=== PATIENT | male | born 1965 | race Hispanic/Latino ===

== ENCOUNTER 2017-11-12 07:00 | Day surgery (SDC) | payer OTHER ==
[2017-11-12] MEDS ORDERED: NA CHLORIDE 0.9% 1,000 ML ONE (07:25)
[2017-11-12] MEDS ORDERED: LIDOCAINE 1% MPF 5 ML VIAL ONE (08:14)
[2017-11-12] MEDS ORDERED: PROPOFOL 200 MG/20 ML VIAL IV ONE ×3 (08:14→08:56)
[2017-11-12 08:51] VITALS: TEMP 97.8
[2017-11-12 08:53] VITALS: BP 128/98; O2SAT 94
--- NOTE | 2017-11-16 08:37 | ENDO RPT ---
[address], [address] COLONOSCOPY PROCEDURE REPORT EXAM DATE: 11/12/2017 PATIENT NAME: Jefferson Varela MR #: [id number] BIRTHDATE: 1965 ATTENDING: Kevin Fournier DR STATUS: outpatient ASSOCIATE PROFESSOR OF AUTOMATION: Lanre Fountain and Crystal Stanley RN INDICATIONS: The patient is a 52 yr old Male here for a colonoscopy due to colon cancer screening PROCEDURE PERFORMED: Colonoscopy with biopsy - cold polypectomy MEDICATIONS: Per Anesthesia. ESTIMATED BLOOD LOSS: None CONSENT: The patient understands the risks and benefits of the procedure and understands that these risks include, but are not limited to: sedation, allergic reaction, infection, perforation and/or bleeding. Alternative means of evaluation and treatment include, among others: physical exam, x-rays, and/or surgical intervention. The patient elects to proceed with this endoscopic procedure. DESCRIPTION OF PROCEDURE: During intra-op preparation period all mechanical medical equipment was checked for proper function. Hand hygiene and appropriate measures for infection prevention was taken. Procedure, possible complications, alternatives including, but not limited to possibility of bleeding, perforation, tear, infection, sepsis, need for surgery, need for blood transfusion, were explained to the patient. After the risks, benefits and alternatives of the procedure were thoroughly explained, Informed consent was verified, confirmed and timeout was successfully executed by the treatment team. The patient was placed in the left lateral position. A digital rectal exam was performed and revealed internal hemorrhoids. After appropriate level of anesthesia, the scope was passed. The [id number] ([id number]) endoscope was introduced through the anus and advanced to the cecum, which was identified by the ileocecal valve. The quality of the prep was fair. The instrument was then slowly withdrawn as the colon was fully examined. Scope withdrawal time was 10 minutes. COLON FINDINGS: Two small smooth semi-pedunculated polyps with friable surfaces were found in the right colon. Multiple biopsies were performed using cold forceps. Polyps were completely removed and all tissue was removed. Sample was obtained and sent to histology. Moderate sized internal hemorrhoids were found. Retroflexed views revealed medium hemorrhoids. The scope was then completely withdrawn from the patient and the procedure terminated. ADVERSE EVENTS: There were no complications. IMPRESSIONS: 1. Two small semi-pedunculated polyps were found in the right colon; multiple biopsies were performed using cold forceps 2. Moderate sized internal hemorrhoids RECOMMENDATIONS: 1. avoid NSAIDS for 2 weeks 2. await biopsy results 3. fiber rich diet 4. follow-up: office 2 week(s) RECALL: Return in 3 year(s) for Colonoscopy, pending biopsy results. Pending Biopsy Kevin Fournier DR eSigned: Kevin Fournier DR 11/12/2017 8:31 AM cc: CPT CODES: ICD9 CODES: PATIENT NAME: Jefferson Varela MR#: [id number]
== END 2017-11-12 08:59 | disposition home or self-care (01) ==
LOC: OR 07:00
PROVIDERS: ATTEND Surgery
PROC: 0DBF8ZX Excision of Right Large Intestine, Via Natural or Artificial Opening Endoscopic, Diagnostic (ICD-10-PCS; principal; 2017-11-12 08:00)
DX: Z12.11 Encounter for screening for malignant neoplasm of colon (principal); D12.2 Benign neoplasm of ascending colon; K64.8 Other hemorrhoids; K21.9 Gastro-esophageal reflux disease without esophagitis; I10 Essential (primary) hypertension; E78.2 Mixed hyperlipidemia; F17.210 Nicotine dependence, cigarettes, uncomplicated; Z82.49 Family history of ischemic heart disease and other diseases of the circulatory system; Z82.61 Family history of arthritis
CPT/HCPCS: 88305; J7030

== ENCOUNTER 2017-11-15 00:43 | Emergency (ER) | payer OTHER ==
[2017-11-15] MEDS ORDERED: ACETAMINOPHEN 325 MG TABLET ONE (02:38)
--- NOTE | 2017-11-15 02:39 | ER ---
Nurse's Notes [facility] Name: Jefferson Varela Age: 52 yrs Sex: Male : 1965 Arrival Date: 11/15/2017 Time: 00:48 Bed 24 Private MD: Diagnosis: Cough Presentation: 11/15 01:00 Presenting complaint: Patient states: cough x 2 days. Denies fever. Transition of care: aa1 patient was not received from another setting of care. Onset of symptoms was November 13, 2017. Care prior to arrival: None. 01:00 Method Of Arrival: Ambulatory aa1 01:00 Acuity: JORGE 4 aa1 Triage Assessment: 01:02 General: Appears in no apparent distress. comfortable, Behavior is calm, cooperative, aa1 appropriate for age, Smells of alcohol. Historical: - Allergies: 01:02 No Known Allergies; aa1 - PMHx: 01:02 Hypertension; High Cholesterol; aa1 - PSHx: 01:02 Heart Cath; aa1 - Immunization history:: Flu vaccine status is unknown. - Social history:: Smoking status: Patient uses tobacco products, smokes one-half pack cigarettes per day. Screenin:12 Abuse screen: Denies threats or abuse. Nutritional screening: No deficits noted. rk2 Tuberculosis screening: No symptoms or risk factors identified. Fall Risk None identified. Assessment: 02:13 General: Appears in no apparent distress. well developed, well nourished, Behavior is rk2 calm, cooperative. Pain: Complains of pain in Headache. Neuro: Level of Consciousness is alert, obeys commands, Oriented to person, place, time, situation. Respiratory: Airway is patent Respiratory effort is even, unlabored, Respiratory pattern is regular, symmetrical. Respiratory: Reports cough that is. Derm: Skin is pink, warm \T\ dry. 02:14 Reassessment: Pt. taken for xray by wheelchair. rk2 Vital Signs: 01:02 BP 142 / 86; Pulse 94; Resp 18; Temp 98.2; Pulse Ox 97% on R/A; Weight 124.74 kg; aa1 Height 5 ft. 10 in. (177.80 cm); Pain 10/10; 02:51 BP 157 / 83; Pulse 90; Resp 18; Pulse Ox 97% on R/A; rk2 01:02 Body Mass Index 39.46 (124.74 kg, 177.80 cm) aa1 ED Course: 00:48 Patient arrived in ED. al2 01:01 Triage completed. aa1 01:02 Arm band placed on left wrist. Patient placed in waiting room, Patient notified of wait aa1 time. 01:27 Nelly Kay RN is Primary Nurse. rk2 01:36 Cesar Herrera NP is PHCP. pm1 01:36 John Jackson MD is Attending Physician. pm1 02:12 Patient has correct armband on for positive identification. Bed in low position. Call rk2 light in reach. 02:19 Patient moved to radiology via wheelchair. kw 02:20 X-ray completed. Patient tolerated procedure well. kw 02:20 Patient moved back from radiology. kw 02:20 Chest Pa And Lat (2 Views) XRAY In Process Unspecified. EDMS 03:00 No provider procedures requiring assistance completed. Patient did not have IV access rk2 during this emergency room visit. Administered Medications: 02:27 Drug: Tylenol 650 mg Route: PO; rk2 03:00 Follow up: Response: No adverse reaction rk2 Outcome: 02:38 Discharge ordered by . pm1 03:00 Discharged to home ambulatory. rk2 03:00 Condition: good 03:00 Discharge instructions given to patient, Prescriptions given X 2. 03:01 Patient left the ED. rk2 Signatures: Dispatcher [employer] EDMS Elva Hazel, RN RN aa1 Do Moore kw Cesar Herrera NP [employer] pm1 Bridgett Scott al2 Nelly Kay RN RN rk2
--- NOTE | 2017-11-15 02:39 | EDPHYS ---
Physician Documentation [facility] Name: Jefferson Varela Age: 52 yrs Sex: Male : 1965 Arrival Date: 11/15/2017 Time: 00:48 Bed 24 Private MD: ED Physician John Jackson HPI: 11/15 02:30 This 52 yrs old Male presents to ER via Ambulatory with complaints of Cough. pm1 02:30 The patient or guardian reports cough. Onset: The symptoms/episode began/occurred pm1 Multiple months and reports worse in the past two days. Severity of symptoms: in the emergency department the symptoms are actually worse. Modifying factors: The symptoms are alleviated by nothing, the symptoms are aggravated by nothing. Associated signs and symptoms: Pertinent negatives: chest pain, fever, rhinorrhea, sore throat, Shortness of breath. The patient has experienced similar episodes in the past, several times. The patient has not recently seen a physician. Productive cough for the past 2 days. Smoke 1/2 pack per week. Historical: - Allergies: 01:02 No Known Allergies; aa1 - PMHx: 01:02 Hypertension; High Cholesterol; aa1 - PSHx: 01:02 Heart Cath; aa1 - Immunization history:: Flu vaccine status is unknown. - Social history:: Smoking status: Patient uses tobacco products, smokes one-half pack cigarettes per day. ROS: 02:30 Constitutional: Negative for fever, chills, and weight loss, Eyes: Negative for injury, pm1 pain, redness, and discharge, ENT: Negative for injury, pain, and discharge, Neck: Negative for injury, pain, and swelling, Cardiovascular: Negative for chest pain, palpitations, and edema. 02:30 Abdomen/GI: Negative for abdominal pain, nausea, vomiting, diarrhea, and constipation, Back: Negative for injury and pain, : Negative for injury, bleeding, discharge, and swelling, MS/Extremity: Negative for injury and deformity, Skin: Negative for injury, rash, and discoloration, Neuro: Negative for headache, weakness, numbness, tingling, and seizure. 02:30 Respiratory: Positive for cough, Negative for shortness of breath, wheezing. Exam: 02:30 Constitutional: This is a well developed, well nourished patient who is awake, alert, pm1 and in no acute distress. Head/Face: Normocephalic, atraumatic. Eyes: Pupils equal round and reactive to light, extra-ocular motions intact. Lids and lashes normal. Conjunctiva and sclera are non-icteric and not injected. Cornea within normal limits. Periorbital areas with no swelling, redness, or edema. ENT: Nares patent. No nasal discharge, no septal abnormalities noted. Tympanic membranes are normal and external auditory canals are clear. Oropharynx with no redness, swelling, or masses, exudates, or evidence of obstruction, uvula midline. Mucous membranes moist. Neck: Trachea midline, no thyromegaly or masses palpated, and no cervical lymphadenopathy. Supple, full range of motion without nuchal rigidity, or vertebral point tenderness. No Meningismus. Chest/axilla: Normal chest wall appearance and motion. Nontender with no deformity. No lesions are appreciated. Cardiovascular: Regular rate and rhythm with a normal S1 and S2. No gallops, murmurs, or rubs. Normal PMI, no JVD. No pulse deficits. Respiratory: Lungs have equal breath sounds bilaterally, clear to auscultation and percussion. No rales, rhonchi or wheezes noted. No increased work of breathing, no retractions or nasal flaring. Abdomen/GI: Soft, non-tender, with normal bowel sounds. No distension or tympany. No guarding or rebound. No evidence of tenderness throughout. Back: No spinal tenderness. No costovertebral tenderness. Full range of motion. Skin: Warm, dry with normal turgor. Normal color with no rashes, no lesions, and no evidence of cellulitis. MS/ Extremity: Pulses equal, no cyanosis. Neurovascular intact. Full, normal range of motion. 02:30 Neuro: Orientation: is normal, Gait: is steady, at a normal pace, without difficulty. Vital Signs: 01:02 BP 142 / 86; Pulse 94; Resp 18; Temp 98.2; Pulse Ox 97% on R/A; Weight 124.74 kg; aa1 Height 5 ft. 10 in. (177.80 cm); Pain 10/10; 02:51 BP 157 / 83; Pulse 90; Resp 18; Pulse Ox 97% on R/A; rk2 01:02 Body Mass Index 39.46 (124.74 kg, 177.80 cm) aa1 MDM: 01:40 Patient medically screened. pm1 02:37 Data reviewed: vital signs. Data interpreted: Pulse oximetry: on room air is 97 %. pm1 Interpretation: normal. Counseling: I had a detailed discussion with the patient and/or guardian regarding: the historical points, exam findings, and any diagnostic results supporting the discharge/admit diagnosis, radiology results, the need for outpatient follow up, to return to the emergency department if symptoms worsen or persist or if there are any questions or concerns that arise at home. 11/15 01:55 Order name: Chest Pa And Lat (2 Views) XRAY pm1 Administered Medications: 02:27 Drug: Tylenol 650 mg Route: PO; rk2 03:00 Follow up: Response: No adverse reaction rk2 Disposition: 03:52 Co-signature as Attending Physician, John Jackson MD. sincere Disposition: 11/15/17 02:38 Discharged to Home. Impression: Cough. - Condition is Stable. - Discharge Instructions: Cough, Adult. - Prescriptions for Zithromax Z- Ryan 250 mg Oral Tablet - take 1 tablet by ORAL route as directed for 5 days Day 1 - take two (2) tablets one time. Day 2, 3, 4 , 5 take one (1) tablet once daily.; 6 tablet. Guaifenesin AC 10- 100 mg/5 mL Oral Liquid - take 10 milliliter by ORAL route every 4 hours As needed; 240 milliliter. - Medication Reconciliation Form, Thank You Letter, Antibiotic Education, Prescription Opioid Use, Work release form form. - Follow up: Emergency Department; When: As needed; Reason: Worsening of condition. Follow up: Private Physician; When: 2 - 3 days; Reason: Recheck today's complaints, Continuance of care, Re-evaluation by your physician. - Problem is new. - Symptoms have improved. Signatures: Dispatcher [employer] Elva Trujillo RN RN aa1 John Jackson MD MD pkl Cesar Herrera NP [employer] pm1 Nelly Kay RN RN rk2
[2017-11-15 03:06] VITALS: TEMP 98.2; O2SAT 97
[2017-11-15 03:07] VITALS: BP 157/83
--- NOTE | 2017-11-15 08:31 | RAD REPORT ---
EXAM DESCRIPTION: RAD - Chest Pa And Lat (2 Views) - 11/15/2017 6:50 am CLINICAL HISTORY: Persistent cough and congestion COMPARISON: April 2017 TECHNIQUE: PA and lateral views of the chest were obtained. FINDINGS: The lungs are clear of a focal consolidation, mass or significant failure. Interstitial ma rkings are prominent but not clearly different. Heart size is normal and central vasculature is wit hin normal limits. No pleural effusion or pneumothorax seen. No acute bony finding noted. No aorti c abnormality. IMPRESSION: No acute cardiopulmonary process. No significant change from comparison.
== END 2017-11-15 03:01 | disposition home or self-care (01) ==
LOC: ER 00:43
DX: R05 Cough (principal); I10 Essential (primary) hypertension; F17.210 Nicotine dependence, cigarettes, uncomplicated
CPT/HCPCS: 71046; 99283

== ENCOUNTER 2018-03-17 11:24 | Emergency (ER) | payer OTHER ==
[2018-03-17 11:52] LABS: Absolute Lymphocytes (CBC) 2.1 K/uL (0.7-4.9); Absolute Monocytes 0.6 K/uL (0.1-1.3); Absolute Neutrophil 4.9 K/uL (1.8-8.0); Basophils % 1.2 % (0-1.3); Eosinophils % 5.7 % (0-4.4); Hematocrit 46.6 % (39.6-49.0); Lymphocytes % 25.6 % (15.3-44.8); MCV 91.7 fL (80-100); MPV 7.5 fL (7.6-11.3); Monocytes % 7.5 % (3.3-12.3); RBC Red Blood Cell Count 5.09 M/uL (4.33-5.43)
[2018-03-17] MEDS ORDERED: MEPERIDINE HCL 50 MG/ML AMP ONE (12:06)
[2018-03-17] MEDS ORDERED: PROMETHAZINE 25 MG/ML VIAL ONE (12:07)
[2018-03-17] MEDS ORDERED: NA CHLORIDE 0.9% 1,000 ML ONE (12:07)
[2018-03-17 12:23] LABS: Albumin 4.1 g/dL (3.4-5.0); Bilirubin Direct 0.1 mg/dL (0-0.2); Bilirubin Total 0.7 mg/dL (0.2-1.0); Potassium 4.4 mmol/L (3.5-5.1)
[2018-03-17 12:23] LABS: Urine Blood TRACE (NEG); Urine Glucose NEGATIVE (NEG); Urine Protein 1+ (NEG); Urine pH 5.5 (5.0-7.0)
--- NOTE | 2018-03-17 13:37 | RAD REPORT ---
EXAM DESCRIPTION: US - Abdomen Exam Limited - 03/17/2018 1:21 pm CLINICAL HISTORY: Abdominal pain, right upper quadrant pain COMPARISON: April 2017 FINDINGS: Gallbladder size is normal. No gallstones, wall thickening or pericholecystic fluid. Commo n bile duct is normal with no common duct stone identified. The liver and spleen show no suspicious f indings. The pancreas is normal. No hydronephrosis or suspicious mass in either kidney Aorta is normal is size. No ascites or bulky lymphadenopathy. IMPRESSION: Normal abdominal ultrasound.
--- NOTE | 2018-03-17 13:51 | EDPHYS ---
Physician Documentation [facility] Name: Jefferson Varela Age: 52 yrs Sex: Male : 1965 Arrival Date: 03/17/2018 Time: 11: Bed 14 Private MD: [facility] ED Physician Arturo Hunter HPI: 03/17 13:07 This 52 yrs old Male presents to ER via Ambulatory with complaints of jr8 Abdominal Pain. 13:07 The patient presents with abdominal pain in the epigastric area. Onset: The jr8 symptoms/episode began/occurred acutely, today. The symptoms do not radiate. Associated signs and symptoms: none. The symptoms are described as sharp. Modifying factors: The symptoms are alleviated by nothing, the symptoms are aggravated by nothing. Severity of pain: At its worst the pain was moderate in the emergency department the pain is unchanged. The patient has experienced a previous episode. The patient has not recently seen a physician. history of pancreatitis. Historical: - Allergies: 11:30 No Known Allergies; hj - Home Meds: 11:30 None [Active]; hj - PMHx: 11:30 High Cholesterol; Hypertension; hj - PSHx: 11:30 Heart Cath; hj - Immunization history:: Adult Immunizations up to date. - Social history:: Smoking status: Patient uses tobacco products, smokes one-half pack cigarettes per day, Patient uses alcohol, on a daily basis. - Ebola Screening: : Patient negative for fever greater than or equal to 101.5 degrees Fahrenheit, and additional compatible Ebola Virus Disease symptoms Patient denies exposure to infectious person Patient denies travel to an Ebola-affected area in the 21 days before illness onset. ROS: 13:07 Eyes: Negative for injury, pain, redness, and discharge, ENT: Negative for injury, jr8 pain, and discharge, Neck: Negative for injury, pain, and swelling, Cardiovascular: Negative for chest pain, palpitations, and edema, Respiratory: Negative for shortness of breath, cough, wheezing, and pleuritic chest pain, Back: Negative for injury and pain, MS/Extremity: Negative for injury and deformity, Skin: Negative for injury, rash, and discoloration, Neuro: Negative for headache, weakness, numbness, tingling, and seizure. 13:07 Abdomen/GI: Positive for abdominal pain, Negative for nausea, vomiting, and diarrhea, abdominal distension, anorexia, dysphagia, hematemesis, black/tarry stool, rectal pain, rectal bleeding, bowel incontinence, flatulence. Exam: 13:07 Eyes: Pupils equal round and reactive to light, extra-ocular motions intact. Lids and jr8 lashes normal. Conjunctiva and sclera are non-icteric and not injected. Cornea within normal limits. Periorbital areas with no swelling, redness, or edema. ENT: Nares patent. No nasal discharge, no septal abnormalities noted. Tympanic membranes are normal and external auditory canals are clear. Oropharynx with no redness, swelling, or masses, exudates, or evidence of obstruction, uvula midline. Mucous membranes moist. Cardiovascular: Regular rate and rhythm with a normal S1 and S2. No gallops, murmurs, or rubs. Normal PMI, no JVD. No pulse deficits. Respiratory: Lungs have equal breath sounds bilaterally, clear to auscultation and percussion. No rales, rhonchi or wheezes noted. No increased work of breathing, no retractions or nasal flaring. Back: No spinal tenderness. No costovertebral tenderness. Full range of motion. Skin: Warm, dry with normal turgor. Normal color with no rashes, no lesions, and no evidence of cellulitis. MS/ Extremity: Pulses equal, no cyanosis. Neurovascular intact. Full, normal range of motion. Neuro: Awake and alert, GCS 15, oriented to person, place, time, and situation. Cranial nerves II-XII grossly intact. Motor strength 5/5 in all extremities. Sensory grossly intact. Cerebellar exam normal. Normal gait. 13:07 Abdomen/GI: Inspection: abdomen appears normal, Bowel sounds: active, all quadrants, Palpation: soft, in all quadrants, mild abdominal tenderness, in the epigastric area, mass, is not appreciated, rebound tenderness, is not appreciated, voluntary guarding, is not appreciated, involuntary guarding, is not appreciated, no appreciated organomegaly, Indicators: McBurney's point is not tender, Manning's sign is negative, Rovsing's sign is negative, Liver: no appreciated palpable abnormalities, tenderness, is not appreciated. Vital Signs: 11:31 BP 186 / 101; Pulse 103; Resp 18; Temp 98.3(O); Pulse Ox 96% on R/A; Weight 122.47 kg; hj Height 5 ft. 10 in. (177.80 cm); Pain 7/10; 11:49 BP 171 / 93; Pulse 102; Resp 18; Pulse Ox 98% on R/A; mt 14:03 BP 158 / 99; Pulse 80; Resp 18 S; Pulse Ox 97% on R/A; Pain 3/10; aa5 11:31 Body Mass Index 38.74 (122.47 kg, 177.80 cm) MDM: 11:38 Patient medically screened. jr8 13:49 Differential diagnosis: bowel obstruction, cholecystitis, Cholelithiasis, jr8 diverticulitis, gastritis, gastroesophageal reflux disease, Hepatitis, myocardia ischemia or infarction, non-specific abd pain, pancreatitis, Peptic Ulcer Disease, Perf. Duodenal Ulcer, Perf. Gastric Ulcer. Data reviewed: vital signs, nurses notes, lab test result(s), radiologic studies, ultrasound, and as a result, I will discharge patient. Data interpreted: Pulse oximetry: on room air is 98 %. Interpretation: normal. Counseling: I had a detailed discussion with the patient and/or guardian regarding: the historical points, exam findings, and any diagnostic results supporting the discharge/admit diagnosis, lab results, radiology results, the need for outpatient follow up, a family practitioner, a veterinary inspector, to return to the emergency department if symptoms worsen or persist or if there are any questions or concerns that arise at home. Response to treatment: the patient's symptoms have markedly improved after treatment. 03/17 11:39 Order name: Basic Metabolic Panel; Complete Time: 12:30 03/17 11:39 Order name: CBC with Diff; Complete Time: 12:30 03/17 11:39 Order name: Creatinine for Radiology; Complete Time: 12:30 03/17 11:39 Order name: Hepatic Function; Complete Time: 12:30 03/17 11:39 Order name: Lipase; Complete Time: 12:30 03/17 12:11 Order name: Urine Dipstick--Ancillary (enter results); Complete Time: 12:30 03/17 11:39 Order name: IV Saline Lock; Complete Time: 11:45 03/17 11:39 Order name: Labs collected and sent; Complete Time: 11:45 03/17 11:39 Order name: Urine Dipstick-Ancillary (obtain specimen); Complete Time: 12:11 03/17 12:30 Order name: US Abdomen Limited; Complete Time: 13:38 03/17 13:51 Order name: EKG; Complete Time: 13:52 03/17 13:51 Order name: EKG - Nurse/Tech; Complete Time: 14:03 Administered Medications: 12:10 Drug: Demerol 50 mg Route: IVP; Site: right antecubital; aa5 12:29 Follow up: Response: No adverse reaction; Pain is decreased aa5 12:10 Drug: Phenergan 12.5 mg Route: IVP; Site: right antecubital; aa5 12:28 Follow up: Response: No adverse reaction; Nausea is decreased aa5 12:10 Drug: NS 0.9% 1000 ml Route: IV; Rate: 1000 ml; Site: right antecubital; aa5 13:30 Follow up: IV Status: Completed infusion aa5 Disposition: 15:35 Co-signature as Attending Physician, Arturo Hunter MD I agree with the assessment and kdr plan of care. Disposition: 03/17/18 13:50 Discharged to Home. Impression: Abdominal and pelvic pain. - Condition is Stable. - Discharge Instructions: Abdominal Pain, Adult. - Prescriptions for Tylenol- Codeine #3 300-30 mg Oral Tablet - take 2 tablet by ORAL route every 6 hours As needed; 30 tablet. Zofran 4 mg Oral Tablet - take 1 tablet by ORAL route every 12 hours As needed; 20 tablet. - Work release form, Medication Reconciliation Form, Thank You Letter, Antibiotic Education, Prescription Opioid Use form. - Follow up: Cooper Lewis DO; When: 1 - 2 days; Reason: Recheck today's complaints, Continuance of care, Re-evaluation by your physician. - Problem is new. - Symptoms have improved. - Notes: clear liquids for next 24-48 hours Signatures: Dispatcher [employer] EDMS Arturo Hunter MD MD [facility] Lillian Hayward RN RN aa5 Lars Mai PA PA jr8 Jerson Franks RN RN hj Corrections: (The following items were deleted from the chart) 14:18 13:50 03/17/2018 13:50 Discharged to Home. Impression: Abdominal and pelvic pain. aa5 Condition is Stable. Forms are Medication Reconciliation Form, Thank You Letter, Antibiotic Education, Prescription Opioid Use. Follow up: Cooper Lewis; When: 1 - 2 days; Reason: Recheck today's complaints, Continuance of care, Re-evaluation by your physician. Problem is new. Symptoms have improved. jr8
--- NOTE | 2018-03-17 13:51 | ER ---
Nurse's Notes [facility] Name: Jefferson Varela Age: 52 yrs Sex: Male : 1965 Arrival Date: 03/17/2018 Time: 11:26 Bed 14 Private MD: Cooper Lewis Diagnosis: Abdominal and pelvic pain Presentation: 03/17 11:27 Presenting complaint: Patient states: i have this stomach pain (epigastric area) that hj started this morning around 4:30am and its getting worse, reports nausea, denies vomiting; hx of pancreatitis; denies diarrhea; denies chest pain;. Transition of care: patient was not received from another setting of care. Onset of symptoms was March 17, 2018. Risk Assessment: Do you want to hurt yourself or someone else? Patient reports no desire to harm self or others. Initial Sepsis Screen: Does the patient meet any 2 criteria? No. Patient's initial sepsis screen is negative. Does the patient have a suspected source of infection? No. Patient's initial sepsis screen is negative. Care prior to arrival: None. 11:27 Method Of Arrival: Ambulatory 11:27 Acuity: JORGE 3 hj Triage Assessment: 11:30 General: Appears in no apparent distress. uncomfortable, Behavior is calm, cooperative, hj appropriate for age. Pain: Complains of pain in abdomen Pain currently is 7 out of 10 on a pain scale. GI: Reports upper abdominal pain, nausea. Historical: - Allergies: 11:30 No Known Allergies; hj - Home Meds: 11:30 None [Active]; hj - PMHx: 11:30 High Cholesterol; Hypertension; hj - PSHx: 11:30 Heart Cath; hj - Immunization history:: Adult Immunizations up to date. - Social history:: Smoking status: Patient uses tobacco products, smokes one-half pack cigarettes per day, Patient uses alcohol, on a daily basis. - Ebola Screening: : Patient negative for fever greater than or equal to 101.5 degrees Fahrenheit, and additional compatible Ebola Virus Disease symptoms Patient denies exposure to infectious person Patient denies travel to an Ebola-affected area in the 21 days before illness onset. Screenin:31 Abuse screen: Denies threats or abuse. Denies injuries from another. Nutritional hj screening: No deficits noted. Tuberculosis screening: No symptoms or risk factors identified. Fall Risk None identified. Assessment: 11:31 GI: Bowel sounds present X 4 quads. Abd is soft and non tender Abd is soft. hj 11:40 General: Appears uncomfortable, Behavior is calm, cooperative. Pain: Complains of pain aa5 in epigastric area Pain does not radiate. Pain currently is 6 out of 10 on a pain scale. Quality of pain is described as squeezing, Pain began this morning Is continuous. Neuro: Level of Consciousness is awake, alert, obeys commands, Oriented to person, place, time, situation. Cardiovascular: Heart tones S1 S2 present Rhythm is regular. Respiratory: Airway is patent Respiratory effort is even, unlabored, Respiratory pattern is regular, symmetrical, Breath sounds are clear bilaterally. GI: Abdomen is round non-distended, Bowel sounds present X 4 quads. Abd is soft X 4 quads Abdomen is tender to palpation in epigastric area Reports nausea, Patient currently denies diarrhea, vomiting. : No signs and/or symptoms were reported regarding the genitourinary system. EENT: No signs and/or symptoms were reported regarding the EENT system. Derm: Skin is pink, warm \T\ dry. Musculoskeletal: Range of motion: intact in all extremities. 12:14 Reassessment: Patient is alert, oriented x 3, equal unlabored respirations, skin aa5 warm/dry/pink. Pt sitting up in bed watching TV, pt notified of wait time for lab results. Bed in low position, side rails x 2, call pollack within reach . 12:29 Reassessment: Patient and/or family updated on plan of care and expected duration. Pain aa5 level reassessed. Patient is alert, oriented x 3, equal unlabored respirations, skin warm/dry/pink. Patient states feeling better. Pain: Pain currently is 3 out of 10 on a pain scale. GI: Patient currently denies nausea. 13:40 Reassessment: Patient and/or family updated on plan of care and expected duration. Pain aa5 level reassessed. Patient is alert, oriented x 3, equal unlabored respirations, skin warm/dry/pink. 14:02 Reassessment: EKG completed . aa5 14:17 Reassessment: Patient is alert, oriented x 3, equal unlabored respirations, skin aa5 warm/dry/pink. Vital Signs: 11:31 BP 186 / 101; Pulse 103; Resp 18; Temp 98.3(O); Pulse Ox 96% on R/A; Weight 122.47 kg; hj Height 5 ft. 10 in. (177.80 cm); Pain 7/10; 11:49 BP 171 / 93; Pulse 102; Resp 18; Pulse Ox 98% on R/A; mt 14:03 BP 158 / 99; Pulse 80; Resp 18 S; Pulse Ox 97% on R/A; Pain 3/10; aa5 11:31 Body Mass Index 38.74 (122.47 kg, 177.80 cm) hj ED Course: 11:26 Patient arrived in ED. mr 11:27 Cooper Lewis DO is Private Physician. mr 11:29 Triage completed. hj 11:31 Arm band placed on left wrist. hj 11:31 Patient has correct armband on for positive identification. Placed in gown. Bed in low hj position. Call light in reach. Side rails up X 1. 11:38 Lars Mai PA is PHCP. jr8 11:38 Arturo Hunter MD is Attending Physician. jr8 11:41 Lillian Hayward, RONIT is Primary Nurse. aa5 11:46 Inserted saline lock: 20 gauge in right antecubital area, using aseptic technique. mt Blood collected. 12:11 Urine collected: clean catch specimen, kyle colored. mh5 13:21 US Abdomen Limited In Process Unspecified. EDMS 13:50 Cooper Lewis DO is Referral Physician. jr8 14:07 EKG done, by tower technician. reviewed by Lars ALFORD. sm3 14:17 IV discontinued, intact, bleeding controlled, No redness/swelling at site. Pressure aa5 dressing applied. 14:18 No provider procedures requiring assistance completed. aa5 Administered Medications: 12:10 Drug: Demerol 50 mg Route: IVP; Site: right antecubital; aa5 12:29 Follow up: Response: No adverse reaction; Pain is decreased aa5 12:10 Drug: Phenergan 12.5 mg Route: IVP; Site: right antecubital; aa5 12:28 Follow up: Response: No adverse reaction; Nausea is decreased aa5 12:10 Drug: NS 0.9% 1000 ml Route: IV; Rate: 1000 ml; Site: right antecubital; aa5 13:30 Follow up: IV Status: Completed infusion aa5 Outcome: 13:50 Discharge ordered by MD. marmolejo 14:17 Discharged to home ambulatory. aa5 14:17 Condition: stable 14:17 Discharge instructions given to patient, Instructed on discharge instructions, follow up and referral plans. no driving heavy equipment, medication usage, Demonstrated understanding of instructions, follow-up care, medications, Prescriptions given X 2. 14:18 Patient left the ED. aa5 Signatures: Dispatcher [employer] Xiomy Buenrostro Audri, RN RN aa5 Lars Mai PA PA jrJerson Henry RN RN hj Martinez, Maria [facility] Shital Florian mt, Shakira 3 Corrections: (The following items were deleted from the chart) 11:33 11:27 Presenting complaint: Patient states: i have this stomach pain that started this hj morning around 4:30am and its getting worse, reports nausea, denies vomiting; hx of pancreatitis; denies diarrhea; hj 11:33 11:31 Pulse 103bpm; Resp 18bpm; Pulse Ox 96% RA; Temp 98.3F Oral; 122.47 kg; Height 5 hj ft. 10 in.; BMI: 38.7; Pain 7/10; hj
[2018-03-17 14:24] VITALS: TEMP 98.3
[2018-03-17 14:26] VITALS: BP 158/99; O2SAT 97
--- NOTE | 2018-03-17 19:05 | EKG ---
Test Date: 2018-03-17 Test Time: 13:58:35 Mason Helper: CLAUDIO MEASUREMENT RESULTS: Intervals: Rate: 80 WY: 148 QRSD: 90 QT: 400 QTc: 461 Blanchard: P: 30 WY: 148 QRS: 32 T: 49 INTERPRETIVE STATEMENTS: Normal sinus rhythm Normal ECG Compared to ECG 04/25/2017 16:42:08 No significant changes Electronically Signed On 03-17-18 19:04:40 CDT by Binu Patterson
== END 2018-03-17 14:18 | disposition home or self-care (01) ==
LOC: ER 11:24
DX: R10.13 Epigastric pain (principal); R10.2 Pelvic and perineal pain; I10 Essential (primary) hypertension; F17.210 Nicotine dependence, cigarettes, uncomplicated
CPT/HCPCS: 36415; 76705; 80048; 80076; 81003; 83690; 85025; 93005; 96361; 96374; 96375; 99284; J2175; J2550; J7030

== ENCOUNTER 2018-04-18 09:30 | Day surgery (SDC) | payer OTHER ==
--- OUTSIDE RECORDS SUMMARY | 2018-04-18 09:49 | XMS REPORT ---
:1965 Author Organization eClinicalWorks Care Team Providers Name Role Phone Emeka Lewish Provider Role Unavailable Allergies, Adverse Reactions, Alerts Substance Reaction Event Type N.K.D.A. Info Not Available Non Drug Allergy Problems Problem Type Condition Code Onset Dates Condition Status Assessment Uncontrolled type 2 diabetes E11.65 Active mellitus without complication, without long-term current use of insulin Problem URI with cough and congestion J06.9 Active Problem Uncontrolled type 2 diabetes E11.65 Active mellitus without complication, without long-term current use of insulin Problem Tobacco abuse Z72.0 Active Problem Erectile dysfunction, unspecified N52.9 Active erectile dysfunction type Problem Tobacco use disorder F17.200 Active Problem GERD without esophagitis K21.9 Active Problem HTN (hypertension), benign I10 Active Problem Mixed hyperlipidemia E78.2 Active Assessment Tobacco abuse Z72.0 Active Assessment HTN (hypertension), benign I10 Active Assessment Erectile dysfunction, unspecified N52.9 Active erectile dysfunction type Assessment Mixed hyperlipidemia E78.2 Active Assessment GERD without esophagitis K21.9 Active Assessment Epigastric abdominal pain R10.13 Active Medications Medication Code Code Instructions Start End Status Dosage System Date Date Lipitor [facility] 90696301999 40 MG Orally Active 1 tablet Once a day Metformin HCl ND 27616396117 1000 MG Orally Active 1 tablet Twice a day with meals Lipitor ND 25810011994 40 MG Orally Active 1 tablet Once a day Norvasc [facility] 26109315883 10 MG Orally Active 1 tablet Once a day Nexium ND 69479478086 40 MG Orally Active 1 capsule Once a day Lopressor ND 71440962399 50 MG Orally Active 1 tablet Twice a day with food Aspirin ND 00190077157 81 MG Orally Oct 13, Active 1 tablet Once a day 2018 ProAir [facility] 26818665946 108 (90 Base) Active 2 puffs as RespiClick MCG/ACT needed Inhalation every 6 hrs Lopressor ND 44469837529 50 MG Orally Active 1 tablet Twice a day with food Norvasc [facility] 80982495090 10 MG Orally Active 1 tablet Once a day Results No Known Results Summary Purpose eClinicalWorks Submission
[2018-04-18] MEDS ORDERED: NA CHLORIDE 0.9% 1,000 ML ONE (09:57)
[2018-04-18] MEDS ORDERED: LIDOCAINE 1% MPF 5 ML VIAL ONE (10:31)
[2018-04-18] MEDS ORDERED: PROPOFOL 200 MG/20 ML VIAL IV ONE (10:32)
[2018-04-18] MEDS ORDERED: MIDAZOLAM HCL 2 MG/2 ML INJ ONE (10:32)
--- NOTE | 2018-04-18 10:46 | ENDO RPT ---
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 TOPICAL ANESTHETIC: none CONSENT: The patient understands the risks and benefits of the procedure and understands that these risks include, but are not limited to: sedation, allergic reaction, infection, perforation and/or bleeding. Alternative means of evaluation and treatment include, among others: physical exam, x-rays, and/or surgical intervention. The patient elects to proceed with this endoscopic procedure. DESCRIPTION OF PROCEDURE: During intra-op preparation period all mechanical medical equipment was checked for proper function. Hand hygiene and appropriate measures for infection prevention was taken. Procedure, possible complications, and alternatives including but not limited to the possibility of bleeding, perforation, tear, infection, sepsis, need for surgery, need for blood transfusion, and anesthesia related complications were explained to the patient. After the risks, benefits and alternatives of the procedure were thoroughly explained, Informed consent was verified, confirmed and timeout was successfully executed by the treatment team. The patient was placed in the left lateral position. The patient was anesthetized with topical anesthesia. Through the anesthetized oropharyngeal area, the scope was passed without any difficulty. The EG-[id number] ([id number]) endoscope was introduced through the mouth and advanced to the stomach body. Complete examination was not possible as there was a large amount of recently ingested food in stomach. Retroflexion was not performed. The gastroscope was then slowly withdrawn and removed. Retained food was present in the body of the stomach. Large amount of recently ingested food in stomach. ADVERSE EVENTS: There were no complications. IMPRESSIONS: Retained food was present in the body of the stomach RECOMMENDATIONS: REPEAT EXAM: Return in 1 week(s) for EGD. NPO after [address] eSigned: Kevin Fournier DR 04/18/2018 10:46 AM cc: CPT CODES: ICD9 CODES:
[2018-04-18 11:25] VITALS: TEMP 97
[2018-04-18 11:26] VITALS: BP 140/89; O2SAT 95
== END 2018-04-18 11:05 | disposition home health service (06) ==
LOC: OR 09:30
PROVIDERS: ATTEND Surgery
PROC: 0DJ08ZZ Inspection of Upper Intestinal Tract, Via Natural or Artificial Opening Endoscopic (ICD-10-PCS; principal; 2018-04-18 10:38)
DX: R10.13 Epigastric pain (principal); K21.9 Gastro-esophageal reflux disease without esophagitis; I10 Essential (primary) hypertension; E78.2 Mixed hyperlipidemia; F10.10 Alcohol abuse, uncomplicated; E11.65 Type 2 diabetes mellitus with hyperglycemia; N52.9 Male erectile dysfunction, unspecified; Z79.84 Long term (current) use of oral hypoglycemic drugs; Z79.82 Long term (current) use of aspirin; F17.200 Nicotine dependence, unspecified, uncomplicated
CPT/HCPCS: 82962; J2250; J7030

== ENCOUNTER 2018-04-29 08:35 | Day surgery (SDC) | payer OTHER ==
--- OUTSIDE RECORDS SUMMARY | 2018-04-29 08:38 | XMS REPORT ---
:1965 Author Organization eClinicalWorks Care Team Providers Name Role Phone Kevin Fournier Provider Role Unavailable Allergies, Adverse Reactions, Alerts Substance Reaction Event Type N.K.D.A. Info Not Available Non Drug Allergy Problems Problem Type Condition Code Onset Dates Condition Status Problem URI with cough and congestion J06.9 Active Problem Tobacco use disorder F17.200 Active Problem GERD without esophagitis K21.9 Active Assessment Alcoholism /alcohol abuse F10.20 Active Assessment Gastroesophageal reflux disease, K21.9 Active esophagitis presence not specified Problem Gastroesophageal reflux disease, K21.9 Active esophagitis presence not specified Problem Erectile dysfunction, unspecified N52.9 Active erectile dysfunction type Problem Alcoholism /alcohol abuse F10.20 Active Problem HTN (hypertension), benign I10 Active Problem Mixed hyperlipidemia E78.2 Active Problem Uncontrolled type 2 diabetes E11.65 Active mellitus without complication, without long-term current use of insulin Problem Tobacco abuse Z72.0 Active Medications Medication Code Code Instructions Start End Status Dosage System Date Date ProAir [facility] 28590441569 108 (90 Base) Active 2 puffs as RespiClick MCG/ACT needed Inhalation every 6 hrs Lipitor NDC 54867178377 40 MG Orally Active 1 tablet Once a day Lipitor NDC 12147944585 40 MG Orally Active 1 tablet Once a day Lopressor ND 55425147257 50 MG Orally Active 1 tablet Twice a day with food Norvasc ND 24573999478 10 MG Orally Active 1 tablet Once a day Nexium NDC 84698897580 40 MG Orally Active 1 capsule Once a day Norvasc ND 11067957609 10 MG Orally Active 1 tablet Once a day Aspirin ND 88172699688 81 MG Orally Oct 13, Active 1 tablet Once a day 2017 Metformin HCl ND 22774818767 1000 MG Orally Active 1 tablet Twice a day with meals Lopressor NDC 91765061333 50 MG Orally Active 1 tablet Twice a day with food Results No Known Results Summary Purpose eClinicalWorks Submission
--- OUTSIDE RECORDS SUMMARY | 2018-04-29 08:38 | XMS REPORT ---
[...] End Status Dosage System Date Date Lipitor [facility] 30538722750 40 MG Orally Active 1 tablet Once a day Metformin HCl ND 71994782475 1000 MG Orally Active 1 tablet Twice a day with meals Lipitor ND 02701615543 40 MG Orally Active 1 tablet Once a day Norvasc [facility] 95919463080 10 MG Orally Active 1 tablet Once a day Nexium ND 18225469563 40 MG Orally Active 1 capsule Once a day Lopressor ND 68311261348 50 MG Orally Active 1 tablet Twice a day with food Aspirin ND 81343004844 81 MG Orally Oct 13, Active 1 tablet Once a day [address] [facility] 32821074013 108 (90 Base) Active 2 puffs as RespiClick MCG/ACT needed Inhalation every 6 hrs Lopressor ND 71168119068 50 MG Orally Active 1 tablet Twice a day with food Norvasc [facility] 15914648800 10 MG Orally Active 1 tablet Once a day Results No Known Results Summary Purpose eClinicalWorks Submission
[2018-04-29] MEDS ORDERED: NA CHLORIDE 0.9% 1,000 ML ONE (08:44)
[2018-04-29 09:07] VITALS: O2SAT 94
[2018-04-29] MEDS ORDERED: PROPOFOL 200 MG/20 ML VIAL IV ONE ×2 (09:34→09:51)
[2018-04-29] MEDS ORDERED: LIDOCAINE 1% MPF 2 ML AMPULE ONE (09:35)
--- NOTE | 2018-04-29 10:01 | ENDO RPT ---
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 pylori MEDICATIONS: Per Anesthesia. TOPICAL ANESTHETIC: none CONSENT: The patient understands the risks and benefits of the procedure and understands that these risks include, but are not limited to: sedation, allergic reaction, infection, perforation and/or bleeding. Alternative means of evaluation and treatment include, among others: physical exam, x-rays, and/or surgical intervention. The patient elects to proceed with this endoscopic procedure. DESCRIPTION OF PROCEDURE: During intra-op preparation period all mechanical medical equipment was checked for proper function. Hand hygiene and appropriate measures for infection prevention was taken. Procedure, possible complications, and alternatives including but not limited to the possibility of bleeding, perforation, tear, infection, sepsis, need for surgery, need for blood transfusion, and anesthesia related complications were explained to the patient. After the risks, benefits and alternatives of the procedure were thoroughly explained, Informed consent was verified, confirmed and timeout was successfully executed by the treatment team. The patient was placed in the left lateral position. The patient was anesthetized with topical anesthesia. Through the anesthetized oropharyngeal area, the scope was passed without any difficulty. The Pentax EG-[id number] ([id number]) endoscope was introduced through the mouth and advanced to the second portion of the duodenum. Retroflexed views revealed a moderate sized hiatal hernia. The gastroscope was then slowly withdrawn and removed. Duodenitis was found in the bulb and descending duodenum. A biopsy for H. pylori was taken. Mild gastritis was found in the total stomach. A biopsy for H. pylori was taken. ADVERSE EVENTS: There were no complications. IMPRESSIONS: 1. Duodenitis was found in the bulb and descending duodenum 2. Mild gastritis was found in the total stomach RECOMMENDATIONS: 1. await biopsy results 2. anti-reflux regimen 3. acid suppression therapy 4. follow-up: office 2 week(s) 5. avoid NSAIDS 6. follow-up of helicobacter pylori status, treat if indicated REPEAT EXAM: for EGD. Kevin Fournier DR eSigned: Kevin Fournier DR 04/29/2018 10:00 AM cc: CPT CODES: ICD9 CODES: PATIENT NAME: Jefferson Varela MR#: [id number]
[2018-04-29 10:47] VITALS: BP 164/87; TEMP 98
== END 2018-04-29 10:43 | disposition home or self-care (01) ==
LOC: OR 08:35
PROVIDERS: ATTEND Surgery
PROC: 0DB68ZX Excision of Stomach, Via Natural or Artificial Opening Endoscopic, Diagnostic (ICD-10-PCS; 2018-04-29)
PROC: 0DB98ZX Excision of Duodenum, Via Natural or Artificial Opening Endoscopic, Diagnostic (ICD-10-PCS; principal; 2018-04-29 09:45)
DX: K29.50 Unspecified chronic gastritis without bleeding (principal); B96.81 Helicobacter pylori [H. pylori] as the cause of diseases classified elsewhere; K29.80 Duodenitis without bleeding; K44.9 Diaphragmatic hernia without obstruction or gangrene; K21.9 Gastro-esophageal reflux disease without esophagitis; E11.9 Type 2 diabetes mellitus without complications; I10 Essential (primary) hypertension; E78.5 Hyperlipidemia, unspecified; N52.9 Male erectile dysfunction, unspecified; Z79.82 Long term (current) use of aspirin; Z82.49 Family history of ischemic heart disease and other diseases of the circulatory system
CPT/HCPCS: 82962; 88305; 88312; J2001; J7030

== ENCOUNTER 2018-08-08 07:34 | Emergency (ER) | payer OTHER ==
--- OUTSIDE RECORDS SUMMARY | 2018-08-08 07:36 | XMS REPORT ---
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 pylori infection A04.8 Active Problem Gastroesophageal reflux disease, K21.9 Active esophagitis [...] Start End Status Dosage System Date Date Aspirin ND 71139021714 81 MG Orally Oct 13, Active 1 tablet Once a day 2017 Nexium ND 36178264544 40 MG Orally Active 1 capsule Once a day Lipitor ND 30713980965 40 MG Orally Active 1 tablet Once a day Lopressor ND 27797120665 50 MG Orally Active 1 tablet Twice a day with food Norvasc NDC 97269783710 10 MG Orally Active 1 tablet Once a day Norvasc ND 94348634902 10 MG Orally Active 1 tablet Once a day Lipitor NDC 02923552434 40 MG Orally Active 1 tablet Once a day Clarithromycin ND 79176563373 500 MG Orally May 12, May 26, Active 1 tablet daily 2017 2017 Amoxicillin NDC 75848655566 500 MG Orally May 12, May 26, Active 2 capsule daily 2017 2017 Omeprazole NDC 00394653904 20 MG Orally May 12, Active 1 capsule Twice a day 2017 Metformin HCl ND 50185006852 1000 MG Orally Active 1 tablet Twice a day with meals ProAir RespiClick [facility] 44373708924 108 (90 Base) Active 2 puffs as MCG/ACT needed Inhalation every 6 hrs Lopressor [facility] 67875125787 50 MG Orally Active 1 tablet Twice a day with food Results No Known Results Summary Purpose eClinicalWorks Submission
--- OUTSIDE RECORDS SUMMARY | 2018-08-08 07:36 | XMS REPORT ---
[...] End Status Dosage System Date Date Lipitor [facility] 23433970765 40 MG Orally Active 1 tablet Once a day Metformin HCl ND 35347394902 1000 MG Orally Active 1 tablet Twice a day with meals Lipitor ND 67225152829 40 MG Orally Active 1 tablet Once a day Norvasc [facility] 75458795640 10 MG Orally Active 1 tablet Once a day Nexium ND 82338496622 40 MG Orally Active 1 capsule Once a day Lopressor ND 74036855813 50 MG Orally Active 1 tablet Twice a day with food Aspirin ND 33220090867 81 MG Orally Oct 13, Active 1 tablet Once a day 2018 ProAir [facility] 06228621266 108 (90 Base) Active 2 puffs as RespiClick MCG/ACT needed Inhalation every 6 hrs Lopressor ND 83499973784 50 MG Orally Active 1 tablet Twice a day with food Norvasc [facility] 24195779903 10 MG Orally Active 1 tablet Once a day Results No Known Results Summary Purpose eClinicalWorks Submission
--- OUTSIDE RECORDS SUMMARY | 2018-08-08 07:36 | XMS REPORT ---
[...] End Status Dosage System Date Date ProAir [facility] 42501517320 108 (90 Base) Active 2 puffs as RespiClick MCG/ACT needed Inhalation every 6 hrs Lipitor NDC 14355540717 40 MG Orally Active 1 tablet Once a day Lipitor NDC 13615383805 40 MG Orally Active 1 tablet Once a day Lopressor ND 71298142358 50 MG Orally Active 1 tablet Twice a day with food Norvasc ND 82257046610 10 MG Orally Active 1 tablet Once a day Nexium NDC 63167239157 40 MG Orally Active 1 capsule Once a day Norvasc ND 99953720356 10 MG Orally Active 1 tablet Once a day Aspirin ND 68996179260 81 MG Orally Oct 13, Active 1 tablet Once a day 2017 Metformin HCl ND 65254499383 1000 MG Orally Active 1 tablet Twice a day with meals Lopressor NDC 66640561004 50 MG Orally Active 1 tablet Twice a day with food Results No Known Results Summary Purpose eClinicalWorks Submission
[2018-08-08] MEDS ORDERED: NA CHLORIDE 0.9% 1,000 ML ONE (08:03)
[2018-08-08 08:30] LABS: Absolute Lymphocytes (CBC) 1.6 K/uL (0.7-4.9); Absolute Monocytes 0.3 K/uL (0.1-1.3); Basophils % 2.2 % (0-1.3); Eosinophils % 7.8 % (0-4.4); Hematocrit 41.8 % (39.6-49.0); Lymphocytes % 37.1 % (15.3-44.8); MCH 31.2 pg (27.0-35.0); MCV 88.5 fL (80-100); MPV 7.2 fL (7.6-11.3); Monocytes % 6.8 % (3.3-12.3); RBC Red Blood Cell Count 4.73 M/uL (4.33-5.43)
[2018-08-08 08:34] LABS: BUN Blood Urea Nitrogen 9 mg/dL (7-18); Bicarbonate 24 mmol/L (21-32); Glucose Level 206 mg/dL (74-106); Sodium Level 133 mmol/L (136-145)
[2018-08-08] MEDS ORDERED: ACETAMINOPHEN 500 MG TAB ONE (09:14)
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
[2018-08-08 11:22] VITALS: TEMP 98.2
[2018-08-08 11:27] VITALS: BP 145/88; O2SAT 98
== END 2018-08-08 11:13 | disposition home or self-care (01) ==
LOC: ER 07:34
DX: S82.292A Other fracture of shaft of left tibia, initial encounter for closed fracture (principal); S60.221A Contusion of right hand, initial encounter; F10.10 Alcohol abuse, uncomplicated; V49.40XA Driver injured in collision with unspecified motor vehicles in traffic accident, initial encounter; I10 Essential (primary) hypertension; F17.210 Nicotine dependence, cigarettes, uncomplicated
CPT/HCPCS: 36415; 70450; 71260; 72125; 74177; 80048; 80320; 85025; 86850; 86900; 86901; 96360; 99285; J7030; Q9967